=== PATIENT | female | born 1945 | race Caucasian/White ===

== ENCOUNTER 2017-11-12 10:33 | Day surgery (SDC) | payer OTHER ==
[2017-11-12] MEDS ORDERED: TETRACAINE 0.5% OPHTH 1 DOSE AFFEYE ONE ×2 (11:10→14:04)
[2017-11-12] MEDS ORDERED: VIGAMOX 0.5% OPHTH 1 DOSE AFFEYE ONE ×5 (11:15→14:36)
[2017-11-12] MEDS ORDERED: NS 500 ML IV 500 ML IV ONE (11:22)
[2017-11-12] MEDS ORDERED: PROLENSA OPHTH 1 DOSE AFFEYE ONE (11:26)
[2017-11-12] MEDS ORDERED: ALPHAGAN-P OPHTH 1 DOSE AFFEYE ONE (11:27)
[2017-11-12] MEDS ORDERED: AK-DILATE 2.5% OPHTH 1 DOSE OP ONE ×3 (11:28→11:30)
[2017-11-12] MEDS ORDERED: MYDRIACIL OPHTH 1 DOSE AFFEYE ONE ×3 (11:28→11:30)
[2017-11-12] MEDS ORDERED: CYCLOGYL 1% OPHTH 1 DOSE OP ONE ×3 (11:28→11:30)
[2017-11-12] MEDS ORDERED: BETADINE OPHTH SOLN 5% EACHEYE ONE (14:04)
[2017-11-12] MEDS ORDERED: ADRENALINE CHL INJ IJ ONE (14:19)
[2017-11-12] MEDS ORDERED: BSS OPHTH (PLAIN) 500 ML with VANCOMYCIN HCL 500 MG VIAL 25 MG, ADRENALINE CHL INJ 1 MG IR ONE ×3 (14:19)
[2017-11-12] MEDS ORDERED: XYLOCAINE-MPF 1% IJ ONE (14:19)
[2017-11-12] MEDS ORDERED: DUOVISC IO ONE (14:19)
[2017-11-12] MEDS ORDERED: VERSED ONE (15:29)
[2017-11-12 17:38] VITALS: BP 163/75
== END 2017-11-12 14:57 | disposition home or self-care (01) ==
LOC: SURG1 10:33
PROVIDERS: ATTEND Ophthalmology
PROC: 08RK3JZ Replacement of Left Lens with Synthetic Substitute, Percutaneous Approach (ICD-10-PCS; principal; 2017-11-12 19:45)
PROC: 08DK3ZZ Extraction of Left Lens, Percutaneous Approach (ICD-10-PCS; principal; 2017-11-12 19:45)
DX: H25.12 Age-related nuclear cataract, left eye (principal); H25.012 Cortical age-related cataract, left eye; H52.222 Regular astigmatism, left eye
CPT/HCPCS: 99100; A4217; J0170; J2250; J3370